=== PATIENT | male | born 1985 | race African-American/Black ===

== ENCOUNTER 2020-02-28 12:02 | Emergency (ER) | payer MEDICAID, OTHER ==
[~2020-02-28] VITALS: Ht 172.7 cm; Wt 79.4 kg
[2020-02-28 12:05] VITALS: BP 124/80
--- NOTE | 2020-02-28 12:05 | NUR ---
PT BIB [facility] TO ER BED 5
--- NOTE | 2020-02-28 12:08 | NUR ---
dr summers at bedside evaluating pt.
[2020-02-28] MEDS ORDERED: NACL 0.9% 1,000 ML IV ONE ×2 (12:10→13:50)
--- NOTE | 2020-02-28 12:16 | NUR ---
FINGER LIFT OPERATOR AT BEDSIDE
[2020-02-28] MEDS ORDERED: BACITRACIN OINT 500 UNITS/GM PKT TP ONE ×2 (12:20)
[2020-02-28 12:31] LABS: BASOPHILS # (AUTO) 0.1 K/uL (0.00-0.22); BASOPHILS % (AUTO) 0.7 % (0.0-2.0); EOSINOPHILS % (AUTO) 0.5 % (0.0-4.0); HEMATOCRIT 35.8 % (36-52); HEMOGLOBIN 12.3 g/dL (12.0-18.0); LYMPHOCYTES # (AUTO) 1.7 K/uL (2.0-11.5); LYMPHOCYTES % (AUTO) 22.3 % (20.5-51.1); MEAN CORPUSCULAR HEMOGLOBIN 31 pg (27-31); MEAN CORPUSCULAR HGB CONC 34 g/dL (33-37); MEAN CORPUSCULAR VOLUME 89.8 fL (80-94); MONOCYTES # (AUTO) 0.5 K/uL (0.8-1.0); MONOCYTES % (AUTO) 6.5 % (1.7-9.3); NEUTROPHILS # (AUTO) 5.3 K/uL (1.8-7.7); PLATELET COUNT (AUTO) 412 K/uL (140-450); RED BLOOD CELL COUNT(AUTO) 3.99 MIL/uL (4.20-6.10); RED CELL DISTRIBUTION WIDTH 13.7 % (11.6-13.7); WHITE BLOOD COUNT (AUTO) 7.6 K/uL (4.8-10.8)
--- NOTE | 2020-02-28 12:34 | NUR ---
34/M biba. CC: Found [place] bus stop today-- altered, combative, picking at right foot. 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 Unknown/possible drug abuse. Arrives with right foot bandaged by EMS.Pt awake , alert, afibrile, sce , cbs blf. flat soft abdomen , lacerated wound rt little foot digit. Hx- unspecified psych disorder All- denies
[2020-02-28 12:47] LABS: ALBUMIN 3.9 g/dL (3.4-5.0); ANION GAP 12.9 (8-16); ASPARTATE AMINOTRANSFERASE 34 U/L (15-37); CARBON DIOXIDE 28.6 mmol/L (21-32); CHLORIDE 103 mmol/L (98-107); CREATININE 1.4 mg/dL (0.6-1.3); GFR ARICAN-AMERICAN 75 mL/min (>90); GLUCOSE 95 mg/dL (74-106); POTASSIUM 3.5 mmol/L (3.5-5.1); SODIUM SERUM 141 mmol/L (136-145); TOTAL BILIRUBIN 0.6 mg/dL (0.0-1.0); UREA NITROGEN, BLOOD 8 mg/dL (7-18)
--- NOTE | 2020-02-28 13:03 | NUR ---
APPIED BACITRACIN AND NONAHERENT DRESSING TO RIGHT 5TH AND 4TH TOES WITHOUT ANY ISSUES
[2020-02-28 13:11] LABS: ACETAMINOPHEN < 0.5 ug/ml (10-30); SALICYLATE < 2.8 mg/dL (2.8-20.0)
--- NOTE | 2020-02-28 13:12 | NUR ---
pt back from xray
[2020-02-28] MEDS ORDERED: ACETAMINOPHEN 325 MG TAB PO ONE (13:15)
--- NOTE | 2020-02-28 13:17 | NUR ---
Patient appears to be resting in bed. Vital Signs within normal limits. Respirations even and unlabored.
--- NOTE | 2020-02-28 13:42 | NUR ---
pt awake, alert, eating his lunch at bed.side rails up x1 and lock.
[2020-02-28 13:53] LABS: APPEARANCE,URINE CLEAR (CLEAR); BILIRUBIN,URINE NEGATIVE (NEGATIVE); BLOOD, URINE NEGATIVE (NEGATIVE); COLOR,URINE YELLOW (YELLOW); LEUKOCYTE ESTERASE ,URINE NEGATIVE (NEGATIVE); NITRITE, URINE NEGATIVE (NEGATIVE); UGLUCOSE NEGATIVE (NEGATIVE)
--- NOTE | 2020-02-28 14:01 | NUR ---
dr summers reevaluating pt at bedside.
[2020-02-28] MEDS ORDERED: AMOXIL/CLAVULANATE 875/125 MG 1 TAB PO ONE (14:05)
[2020-02-28 14:12] LABS: BARBITURATE, URINE NEGATIVE ng/ml (NEG <=200); BENZODIAZEPINE, URINE NEGATIVE ng/mL (NEG <=200); CANNABINOID, URINE NEGATIVE ng/mL (NEG <=50); COCAINE, URINE NEGATIVE ng/mL (NEG <=300); OPIATE, URINE NEGATIVE ng/mL (NEG <=2000); PHENCYCLIDINE SCREEN,URINE NEGATIVE ng/mL (NEG <=25)
[2020-02-28 14:30] VITALS: BP 120/80
--- NOTE | 2020-02-28 14:31 | NUR ---
Patient discharged with v/s stable. Written and verbal after care instructions given and explained regarding deep slin avulsion . Patient alert, oriented and verbalized understanding of instructions. Ambulatory with steady gait. All questions addressed prior to discharge. ID band removed. Patient advised to follow up with PMD. Rx of cepacol , motrin and augmentin given. Patient educated on indication of medication including possible reaction and side effects. Opportunity to ask questions provided and answered.
== END 2020-02-28 14:31 | disposition home or self-care (01) ==
LOC: MED 12:02
DX: S91.104A Unspecified open wound of right lesser toe(s) without damage to nail, initial encounter (principal); X58.XXXA Exposure to other specified factors, initial encounter; F15.90 Other stimulant use, unspecified, uncomplicated; F15.10 Other stimulant abuse, uncomplicated; K12.0 Recurrent oral aphthae; Y93.89 Activity, other specified; Y92.89 Other specified places as the place of occurrence of the external cause; Y99.8 Other external cause status
CPT/HCPCS: 36415; 70450; 71045; 73630; 73660; 80053; 80305; 81003; 82550; 82553; 84484; 85025; 90471; 90715; 93005; 99285; G0480; G0482; J7030; Q0092

== ENCOUNTER 2020-04-04 22:43 | Emergency (ER) | payer OTHER ==
[~2020-04-04] VITALS: Ht 185.4 cm; Wt 81.6 kg
[2020-04-04 22:48] VITALS: BP 134/89
[2020-04-04] MEDS ORDERED: ACETAMINOPHEN EXTRA STRENGTH 500 MG TAB PO ONE (23:00)
--- NOTE | 2020-04-04 23:15 | NUR ---
RECEVIED A 34 M FROM EMS FOR ORGAN PAIN. DENIES ANY INJURY/TRAUMA. STATES "MY ORGANS HURT AND HAVENT SLEPT IN 3 DAYS." IN FAST TRACK CHAIR FOR [facility]SE.
--- NOTE | 2020-04-04 23:21 | NUR ---
PT STATES "I CAN ONLY GIVE URINE IF YOU USE A CATHETER" DR MCELROY NOTIFIED. OKAY TO STRAIGHT CATH.
--- NOTE | 2020-04-04 23:53 | NUR ---
URINE SPECIMEN COLLECTED AND TAKEN TO LAB
[2020-04-04 23:56] LABS: APPEARANCE,URINE CLEAR (CLEAR); BILIRUBIN,URINE NEGATIVE (NEGATIVE); BLOOD, URINE 1+ (NEGATIVE); COLOR,URINE YELLOW (YELLOW); LEUKOCYTE ESTERASE ,URINE NEGATIVE (NEGATIVE); NITRITE, URINE NEGATIVE (NEGATIVE); PH,URINE 5.5 (5.0-9.0); UGLUCOSE NEGATIVE (NEGATIVE)
[2020-04-05 00:30] LABS: RBC,URINE 11-20 (MOD) /HPF (0-5); WBC,URINE 0-5 /HPF (0-5)
[2020-04-05 00:32] LABS: BARBITURATE, URINE NEGATIVE ng/ml (NEG <=200); BENZODIAZEPINE, URINE NEGATIVE ng/mL (NEG <=200); CANNABINOID, URINE NEGATIVE ng/mL (NEG <=50); COCAINE, URINE NEGATIVE ng/mL (NEG <=300); OPIATE, URINE NEGATIVE ng/mL (NEG <=2000); PHENCYCLIDINE SCREEN,URINE NEGATIVE ng/mL (NEG <=25)
--- NOTE | 2020-04-05 01:27 | NUR ---
Patient discharged with v/s stable. Written and verbal after care instructions given and explained. Patient verbalized understanding. Ambulatory with steady gait. All questions addressed prior to discharge. Advised to follow up with PMD.
--- NOTE | 2020-04-05 01:27 | NUR ---
HOMELESS RESOURCE PACKET GIVEN ALONG WITH MEAL AND BUS TOKEN. DENIES NEED FOR CLOTHES.
[2020-04-05 01:28] VITALS: BP 128/74
== END 2020-04-05 01:28 | disposition home or self-care (01) ==
LOC: MED 22:43
DX: F15.10 Other stimulant abuse, uncomplicated (principal); M79.10 Myalgia, unspecified site; E86.0 Dehydration
CPT/HCPCS: 71045; 80305; 81001; 99283; 99284

== ENCOUNTER 2020-05-16 14:18 | Emergency (ER) | payer OTHER ==
[~2020-05-16] VITALS: Ht 182.9 cm; Wt 86.2 kg
--- NOTE | 2020-05-16 14:21 | NUR ---
PT BIBA TO ER BED 5
[2020-05-16 14:30] VITALS: BP 130/82
--- NOTE | 2020-05-16 14:30 | NUR ---
34/M HOMELESS BIBA FOR LEFT EYE PAIN/ITCHING/REDNESS X FEW DAYS. DENIES VISUAL CHANGES. DENIES TRAUMA/FOREIGN BODY. HX- DENIES
--- NOTE | 2020-05-16 15:08 | NUR ---
DR. TRIANA EVALUATING PT AT BEDSIDE
[2020-05-16 15:29] VITALS: BP 130/82
--- NOTE | 2020-05-16 15:30 | NUR ---
Patient discharged with v/s stable. Written and verbal after care instructions given and explained. Patient alert, oriented and verbalized understanding of instructions. Ambulatory with steady gait. All questions addressed prior to discharge. ID band removed. Patient advised to follow up with PMD. Rx of MOTRIN AND ERYTHROMYCIN OPTH OINTMENT given. Patient educated on indication of medication including possible reaction and side effects. Opportunity to ask questions provided and answered. PT REFUSED HOMELESS RESOURCES PACKET AND TRANSPORTATION. ONLY ASKED FOR FOOD PACKET WHICH HAS BEEN PROVIDED TO PT.
== END 2020-05-16 15:30 | disposition home or self-care (01) ==
LOC: MED 14:18
DX: H10.32 Unspecified acute conjunctivitis, left eye (principal)
CPT/HCPCS: 99283

== ENCOUNTER 2020-06-06 21:52 | Emergency (ER) | payer OTHER ==
[~2020-06-06] VITALS: Ht 182.9 cm; Wt 74.8 kg
[2020-06-06 21:53] VITALS: BP 113/77
--- NOTE | 2020-06-06 21:55 | NUR ---
PT BERNADINE ZENDEJAS. TAKEN TO BED 11
--- NOTE | 2020-06-06 22:16 | NUR ---
snellen chart as follows; OD: 20/200 OS : 20/20 OU: 20/70
--- NOTE | 2020-06-06 22:43 | NUR ---
pt states they are not able to give urine at the moment.
--- NOTE | 2020-06-06 22:45 | NUR ---
34 year old male presents to the emergency department with c/o RT eye vision problems. states that he cannot see out of the eye. pt presents with reddened eyes. no other s/sx noted. denies headache. denies sob/cough. denies n/v/d. rr even and unlabored. pmhx: denies nka
--- NOTE | 2020-06-07 01:30 | NUR ---
Patient discharged with v/s stable. Written and verbal after care instructions given and explained. Patient alert, oriented and verbalized understanding of instructions. Ambulatory with steady gait. All questions addressed prior to discharge. ID band removed. Patient advised to follow up with PMD. Rx of TOBRAMYCIN given. Patient educated on indication of medication including possible reaction and side effects. Opportunity to ask questions provided and answered.
[2020-06-07 01:31] VITALS: BP 111/80
== END 2020-06-07 01:30 | disposition home or self-care (01) ==
LOC: MED 21:52
DX: H10.9 Unspecified conjunctivitis (principal)
CPT/HCPCS: 99283